=== PATIENT | female | born 1995 | race Caucasian/White ===

== ENCOUNTER → 2020-06-04 | Outpatient (CLI) | payer MEDICAID ==
[~2020-06-04] MED LIST: FLUO20CA23 PO
== END | disposition home or self-care (01) ==
LOC: CLISVCS 10:39
PROVIDERS: ATTEND Anesthesiology
DX: Z01.812 Encounter for preprocedural laboratory examination (principal); Z20.828 Contact with and (suspected) exposure to other viral communicable diseases
CPT/HCPCS: 87635

== ENCOUNTER 2020-06-05 09:23 | Day surgery (SDC) | payer MEDICAID, OTHER ==
[~2020-06-05] VITALS: Ht 167.6 cm; Wt 107.1 kg
[2020-06-05] MEDS ORDERED: MIDAZOLAM 1 MG/ML, 2ML ONE (09:53)
[2020-06-05] MEDS ORDERED: FENTANYL PF 100 MCG/2ML ONE ×2 (09:53→11:25)
[2020-06-05] MEDS ORDERED: BUPIVACAINE/PF 0.25% ONE (10:09)
[2020-06-05] MEDS ORDERED: morphine SULFATE/PF 1 MG/ML, 10ML ONE (10:09)
[2020-06-05] MEDS ORDERED: LIDOCAINE/PF 1%-EPI 1:200K, 30 ML ONE (10:09)
[2020-06-05] MEDS ORDERED: CHLORHEXIDINE 15 ML UDC MM STA (10:10)
[2020-06-05] MEDS ORDERED: CHLORHEXIDINE 15 ML UDC ONE (10:10)
[2020-06-05 10:11] VITALS: BP 119/83
[2020-06-05] MEDS ORDERED: FLUO20CA23 PO (10:11)
[2020-06-05] MEDS ORDERED: LACTATED RINGERS 1,000 ML IV ONE (10:16)
[2020-06-05 10:21] LABS: HCG UR SG 1.009 (1.003-1.030)
[2020-06-05] MEDS ORDERED: ACETAMINOPHEN 325 MG TABLET PO PRN (10:30)
[2020-06-05] MEDS ORDERED: ALBUTEROL SULFATE 2.5 MG/3 ML NPPB PRN (10:30)
[2020-06-05] MEDS ORDERED: LORazepam 2 MG/ML, 1ML IVPush PRN (10:30)
[2020-06-05] MEDS ORDERED: HYDROmorphone 1 MG/ML, 1ML INJ IVPush PRN (10:30)
[2020-06-05] MEDS ORDERED: OXYcodone 5 MG/5 ML ORAL.SOL UDC PO PRN (10:30)
[2020-06-05] MEDS ORDERED: PLEASE ENTER HEIGHT AND WEIGHT MC SCH (10:30)
[2020-06-05] MEDS ORDERED: PROMETHAZINE 25 MG/ML, 1ML IVPush PRN (10:30)
[2020-06-05] MEDS ORDERED: LABETALOL 5MG/ML, 20ML IV PRN (10:30)
[2020-06-05] MEDS ORDERED: FENTANYL PF 100 MCG/2ML IV PRN (10:30)
[2020-06-05] MEDS ORDERED: MEPERIDINE/PF 25MG/0.5ML IVPush PRN (10:30)
[2020-06-05] MEDS ORDERED: KETOROLAC 30 MG/1 ML ONE (10:59)
[2020-06-05] MEDS ORDERED: LIDOCAINE-MPF 2% ,5ML ONE (10:59)
[2020-06-05] MEDS ORDERED: ONDANSETRON 2MG/ML, 2ML ONE (10:59)
[2020-06-05] MEDS ORDERED: DEXAMETHASONE 4 MG/ML, 1ML ONE (10:59)
[2020-06-05] MEDS ORDERED: CEFAZOLIN 1,000 MG ONE (10:59)
[2020-06-05] MEDS ORDERED: PROPOFOL 10 MG/ML, 20ML ONE (10:59)
[2020-06-05] MEDS ORDERED: PROMETHAZINE 25 MG/ML, 1ML ONE (11:21)
[2020-06-05] MEDS ORDERED: OXYcodone 5 MG/5 ML ORAL.SOL UDC ONE (11:25)
== END 2020-06-05 13:25 | disposition home or self-care (01) ==
LOC: OUT 09:23
PROVIDERS: ATTEND Orthopaedic Surgery
DX: S83.011A Lateral subluxation of right patella, initial encounter (principal); M22.2X1 Patellofemoral disorders, right knee; M25.861 Other specified joint disorders, right knee; M94.261 Chondromalacia, right knee; E66.9 Obesity, unspecified; Z79.1 Long term (current) use of non-steroidal anti-inflammatories (NSAID); Z79.899 Other long term (current) drug therapy; Z88.5 Allergy status to narcotic agent; Z82.3 Family history of stroke; Z82.49 Family history of ischemic heart disease and other diseases of the circulatory system; W01.0XXA Fall on same level from slipping, tripping and stumbling without subsequent striking against object, initial encounter; Y93.89 Activity, other specified; Y92.89 Other specified places as the place of occurrence of the external cause; Y99.8 Other external cause status
CPT/HCPCS: 29873; 81025; J0690; J1100; J1885; J2250; J2274; J2405; J2704; J3010; J7120